=== PATIENT | female | born 1985 | race Hispanic/Latino ===

== ENCOUNTER 2019-12-14 10:55 | Observation (INO) | payer BC ==
[2019-12-14 11:38] VITALS: BP 153/84
[2019-12-14] MEDS ORDERED: LABETALOL HCL 200 MG TABLET PO SCH (11:45)
[2019-12-14] MEDS ORDERED: ACETAMINOPHEN 325 MG TAB PO PRN (11:45)
--- NOTE | 2019-12-14 12:25 | NUR ---
DR. JULIAN ROUNDING ON PATIENT. POC DISCUSSED. QUESTIONS INVITED AND ANSWERED. NO COMPLAINTS OR CONCERNS.
[2019-12-14] MEDS ORDERED: LEVO200T10 PO (12:49)
[2019-12-14] MEDS ORDERED: LABE100T5 PO (12:49)
[2019-12-14 13:15] LABS: BASOPHILS % (AUTO) 0.2 % (0.0-5.0); EOSINOPHILS % (AUTO) 2.3 % (0.0-8.0); HEMATOCRIT 32.1 % (36-48); LYMPHOCYTES % (AUTO) 15.3 % (21.0-51.0); MEAN CORPUSCULAR HEMOGLOBIN 26.5 pg (27.0-33.0); MEAN CORPUSCULAR HGB CONC 32.4 g/dL (32.0-36.0); MEAN CORPUSCULAR VOLUME 81.9 fL (79-99); MONOCYTES % (AUTO) 5.4 % (3.0-13.0); NEUTROPHILS % (AUTO) 75.4 % (40.0-77.0); NUCLEATED RED BLOOD CELLS 0.2 % (0.0-0.19); PLATELET COUNT (AUTO) 326 K/uL (130-400); RED BLOOD CELL COUNT(AUTO) 3.92 MIL/uL (4.00-5.50); RED CELL DISTRIBUTION WIDTH 13.7 % (11.0-15.5); WHITE BLOOD COUNT (AUTO) 11.5 K/uL (4.8-10.8)
[2019-12-14 13:26] LABS: CREATININE 0.7 mg/dL (0.5-1.5)
[2019-12-14 13:29] LABS: INR 0.89 (0.85-1.15); PARTIAL THROMBOPLASTIN TIME 27.3 SEC (26.3-35.5); PROTHROMBIN TIME 9.7 SEC (9.6-11.6)
[2019-12-14 13:33] LABS: ALBUMIN 2.4 g/dL (3.5-5.0); BILIRUBIN,TOTAL 0.4 mg/dL (0.2-1.0); TOTAL PROTEIN, SERUM 6.8 g/dL (6.0-8.3); URIC ACID 4.3 mg/dL (2.6-7.2)
--- NOTE | 2019-12-14 13:35 | NUR ---
DR. JULIAN MADE AWARE OF K+ RESULT OF 3.0. NEW ORDERS RECEIVED FOR POTASSIUM PROTOCOL PO.
[2019-12-14] MEDS ORDERED: POTASSIUM CHLORIDE 10% ELIXIR 20 MEQ/15 ML UDCUP PO PRN (13:45)
[2019-12-14] MEDS: POTASSIUM CHLORIDE 20 MEQ ERTAB PO PRN ×4 (14:09→22:22)
--- NOTE | 2019-12-14 14:25 | NUR ---
PATIENT PLACED ON NST AT THIS TIME. NO C/O DISCOMFORT
[2019-12-14 15:35] VITALS: BP 149/84
[2019-12-14 19:31] VITALS: BP 123/59
[2019-12-14] MEDS: LABETALOL HCL 200 MG TABLET PO SCH (22:21)
[2019-12-15 00:21] VITALS: BP 143/78
[2019-12-15 03:49] VITALS: BP 134/59
[2019-12-15 06:09] LABS: BASOPHILS % (AUTO) 0.4 % (0.0-5.0); EOSINOPHILS % (AUTO) 2.7 % (0.0-8.0); HEMATOCRIT 30.4 % (36-48); LYMPHOCYTES % (AUTO) 18.8 % (21.0-51.0); MEAN CORPUSCULAR HEMOGLOBIN 26.5 pg (27.0-33.0); MEAN CORPUSCULAR HGB CONC 31.9 g/dL (32.0-36.0); MEAN CORPUSCULAR VOLUME 83.1 fL (79-99); MONOCYTES % (AUTO) 5.2 % (3.0-13.0); NEUTROPHILS % (AUTO) 71.6 % (40.0-77.0); NUCLEATED RED BLOOD CELLS 0.2 % (0.0-0.19); PLATELET COUNT (AUTO) 233 K/uL (130-400); RED BLOOD CELL COUNT(AUTO) 3.66 MIL/uL (4.00-5.50); RED CELL DISTRIBUTION WIDTH 13.5 % (11.0-15.5); WHITE BLOOD COUNT (AUTO) 9.9 K/uL (4.8-10.8)
[2019-12-15 06:34] LABS: ALBUMIN 2.3 g/dL (3.5-5.0); BILIRUBIN,TOTAL 0.4 mg/dL (0.2-1.0); CREATININE 0.6 mg/dL (0.5-1.5); POTASSIUM 3.1 mmol/L (3.5-5.1); TOTAL PROTEIN, SERUM 6.4 g/dL (6.0-8.3)
[2019-12-15 06:36] LABS: INR 0.89 (0.85-1.15); PROTHROMBIN TIME 9.7 SEC (9.6-11.6)
[2019-12-15 07:52] VITALS: BP 135/75
[2019-12-15 08:09] LABS: HEPATITIS Bs ANTIGEN SCREEN P Negative (Negative)
--- NOTE | 2019-12-15 08:40 | NUR ---
ASSESSMENT: RECEIVED RESTING IN BED, EXPLAINED POC AND UNDERSTANDING VERBALIZED. DENIES C/O ANY HEADACHE, BLURRED VISION OR EPIGASTRIC PAIN. LIGHTS DIMMED.
[2019-12-15] MEDS: POTASSIUM CHLORIDE 20 MEQ ERTAB PO PRN ×3 (09:13→14:14)
[2019-12-15] MEDS: LABETALOL HCL 200 MG TABLET PO SCH (09:14)
--- NOTE | 2019-12-15 10:23 | NUR ---
NST: NST REACTIVE, MONITOR OFF. ABD PALPATED SOFT, DENIES C/O ANY CTX'S.
--- NOTE | 2019-12-15 11:30 | NUR ---
24 HR URINE: URINE 24 HR FOR TOTAL PROTEIN AND CREATININE CLEARANCE COMPLETED AND TAKEN TO THE LAB. PT INSTRUCTED TO NOT COLLECT ANY MORE.
[2019-12-15 11:56] VITALS: BP 153/80
--- NOTE | 2019-12-15 11:57 | NUR ---
ACTIVITY: AMB IN ROOM. NO C/O VOICED.
[2019-12-15 13:11] LABS: CREATININE,SERUM FOR CRCL 0.6 mg/dL (0.6-1.3)
[2019-12-15 13:13] LABS: COLLECTION PERIOD,URINE 24 HR; TOTAL VOLUME 24HRS,URINE 5400 mL; TPROTEIN TIMED,URINE 13 mg/dL; TPROTEIN U,24HR CALC 702 mg/24HR (0-165)
--- NOTE | 2019-12-15 14:36 | NUR ---
DISCHARGE INSTRUCTIONS GIVEN TO PT AND SPOUSE ON SELF CARE AT 37 WEEKS GESTATION WITH HIGH BLOOD PRESSURE, S&S OF HIGH BLOOD PRESSURE, LABOR, TO COUNT KICKS BID AND REPORT ANY PROBLEMS, DECREASED MOVEMENT. FOLLOW UP WITH DR JULIAN ON Tuesday12/17/2019 AT 0900 AM OR COME BACK TO THE HOSPITAL FOR ANY PROBLEMS. CONTINUE TAKING LABETALOL 200 MG PO BID , NEXT DOSE AT 2100 TONIGHT. UNDERSTANDING VERBALIZED AND COPIES OF ALL INSTRUCTIONS GIVEN TO PT.
--- NOTE | 2019-12-15 14:37 | NUR ---
DISCHARGE: INSTRUCTED TO FOLLOW HIGH FIBER DIET AND FOODS HIGH IN POTTASIUM, UNDERSTANDING VERBALIZED.
--- NOTE | 2019-12-15 15:00 | NUR ---
DISCHARGE: DISCHARGED HOME WITH HER TO PRIVATE CAR WITH .
== END 2019-12-15 15:00 | disposition home or self-care (01) ==
LOC: WSH 10:55
DX: O16.3 Unspecified maternal hypertension, third trimester (principal); Z3A.37 37 weeks gestation of pregnancy
CPT/HCPCS: 36415 ×2; 80053 ×2; 82575; 84156; 84443; 84550 ×2; 85025 ×2; 85384 ×2; 85610 ×2; 85730 ×2; 86592; 86850; 86900; 86901; 87340; G0378 ×16

== ENCOUNTER 2019-12-16 17:57 | Inpatient (IN) | payer BC ==
[~2019-12-16] VITALS: Ht 170.2 cm; Wt 137.4 kg
[~2019-12-16 17:57] MED LIST: LEVO200T10 PO
[2019-12-16] MEDS ORDERED: LACTATED RINGERS 1000ML 1,000 ML IV PRN (17:59)
[2019-12-16 19:29] LABS: BASOPHILS % (AUTO) 0.4 % (0.0-5.0); EOSINOPHILS % (AUTO) 2.2 % (0.0-8.0); HEMATOCRIT 32.1 % (36-48); MEAN CORPUSCULAR HEMOGLOBIN 26.2 pg (27.0-33.0); MEAN CORPUSCULAR HGB CONC 32.1 g/dL (32.0-36.0); MEAN CORPUSCULAR VOLUME 81.7 fL (79-99); NEUTROPHILS % (AUTO) 73.8 % (40.0-77.0); NUCLEATED RED BLOOD CELLS 0.3 % (0.0-0.19); PLATELET COUNT (AUTO) 330 K/uL (130-400); RED BLOOD CELL COUNT(AUTO) 3.93 MIL/uL (4.00-5.50); RED CELL DISTRIBUTION WIDTH 13.5 % (11.0-15.5); WHITE BLOOD COUNT (AUTO) 10.9 K/uL (4.8-10.8)
[2019-12-16 19:42] LABS: INR 0.91 (0.85-1.15); PROTHROMBIN TIME 9.9 SEC (9.6-11.6)
[2019-12-16 19:58] LABS: CREATININE 0.8 mg/dL (0.5-1.5); POTASSIUM 3.2 mmol/L (3.5-5.1)
[2019-12-16 20:05] LABS: ALBUMIN 2.4 g/dL (3.5-5.0); BILIRUBIN,TOTAL 0.4 mg/dL (0.2-1.0); TOTAL PROTEIN, SERUM 6.7 g/dL (6.0-8.3); URIC ACID 4.1 mg/dL (2.6-7.2)
[2019-12-16] MEDS: DINOPROSTONE 10 MG VAGINAL SUPP VG SCH (20:30)
[2019-12-16 20:34] LABS: APPEARANCE,URINE Clear (CLEAR); BILIRUBIN,URINE Negative (NEGATIVE); COLOR,URINE Yellow (YELLOW); GLUCOSE, URINE (UA) Negative (NEGATIVE); KETONES,URINE Negative (NEGATIVE); LEUKOCYTE ESTERASE ,URINE Small (NEGATIVE); NITRATE,URINE Negative (NEGATIVE); OCCULT BLOOD,URINE Negative (NEGATIVE); PROTEIN,URINE Trace mg/dL (NEGATIVE)
[2019-12-16] MEDS ORDERED: LABETALOL HCL 200 MG TABLET PO SCH (21:00)
[2019-12-16 21:10] LABS: BACTERIA,URINE Few /HPF (None Seen); CALCIUM OXALATE CRYSTALS,UR Few /LPF (None Seen); RBC,URINE None Seen /HPF (0-1)
[2019-12-17] MEDS ORDERED: MEPERIDINE-PF 50 MG/ML SYG ONE (02:22)
[2019-12-17] MEDS: PROMETHAZINE HCL 25 MG/ML 1ML AMPULE IM SCH (02:26)
[2019-12-17] MEDS ORDERED: MEPERIDINE-PF 50 MG/ML SYG IVP ONE (02:30)
[2019-12-17] MEDS ORDERED: OXYTOCIN-LR 20 UNITS/1000 ML 1,000 ML IV ONE (06:29)
[2019-12-17] MEDS ORDERED: OXYTOCIN 10 USP UNITS/ML 20 UNIT in LACTATED RINGERS 1000ML 1,000 ML IV SCH (07:00)
[2019-12-17] MEDS ORDERED: LACTATED RINGERS 500 ML 500 ML IV PRN (09:00)
[2019-12-17] MEDS ORDERED: EPHEDRINE SULFATE 50 MG/ML AMPULE IVP PRN (09:00)
[2019-12-17] MEDS ORDERED: ROPIVACAINE 0.2% 100ML VIAL 100 ML EP SCH (09:00)
[2019-12-17] MEDS ORDERED: NALOXONE HCL 0.4 MG/1 ML ML IV PRN (09:00)
[2019-12-17] MEDS ORDERED: OXYTOCIN-LR 20 UNITS/1000 ML 1,000 ML IV SCH (13:30)
[2019-12-17] MEDS ORDERED: LANOLIN 30GM OINTMENT TP PRN (13:30)
[2019-12-17] MEDS ORDERED: BENZOCAINE/LANOLIN/ALOE VERA 60 ML AEROSOL TP PRN (13:30)
[2019-12-17] MEDS ORDERED: DIPH,PERTUSS(ACELL),TET VAC/PF 0.5 ML VIAL IM PRN (13:30)
[2019-12-17] MEDS ORDERED: ACETAMINOPHEN-CODEINE 300/30MG TAB PO PRN (13:30)
[2019-12-17] MEDS ORDERED: WITCH HAZEL 1 PAD TP PRN (13:30)
[2019-12-17 15:35] VITALS: BP 169/91
--- NOTE | 2019-12-17 17:40 | NUR ---
PATIENT RESTING WITH EYES CLOSED CHEST RISING AND FALLING IN NORMAL PATTERN. AT BEDSIDE RESTING AT BEDSIDE. NO DISTRESS NOTED. CALL LIGHT IN REACH.
[2019-12-17 19:50] VITALS: BP 146/82
[2019-12-17] MEDS: DINOPROSTONE 10 MG VAGINAL SUPP VG SCH (20:22)
[2019-12-17] MEDS: LABETALOL HCL 200 MG TABLET PO SCH (21:07)
[2019-12-17] MEDS: FLUOXETINE HCL 10 MG CAPSULE PO SCH (21:07)
[2019-12-17] MEDS: DOCUSATE SODIUM 100 MG CAP PO SCH (21:07)
[2019-12-17 23:37] VITALS: BP 139/73
[2019-12-18] MEDS: PROMETHAZINE HCL 25 MG/ML 1ML AMPULE IM SCH ×2 (02:30→03:32)
[2019-12-18 03:00] VITALS: BP 127/81
[2019-12-18] MEDS: LEVOTHYROXINE 50 MCG TABLET PO SCH (06:30)
[2019-12-18 07:20] VITALS: BP 137/77
[2019-12-18 08:10] LABS: HEPATITIS Bs ANTIGEN SCREEN P Negative (Negative)
[2019-12-18] MEDS: DOCUSATE SODIUM 100 MG CAP PO SCH ×2 (08:44→21:13)
[2019-12-18] MEDS: LABETALOL HCL 200 MG TABLET PO SCH ×2 (08:45→21:12)
[2019-12-18] MEDS: IBUPROFEN 600 MG TABLET PO PRN (09:52)
--- NOTE | 2019-12-18 10:48 | NUR ---
ADVISED BY ADRIANO THAT PATIENT WOULD BE STAYING ANOTHER NIGHT 09/23 TO BABY NOT BEING DISCHARGED. PASSED INFO ON TO JAYLENE Chery Addendum: 12/18/19 at 1049 by KIKA WINCHESTER RN CM Amended: Links added.
--- NOTE | 2019-12-18 11:00 | NUR ---
[facility] BABY Sw met with pt and Ganga Edwards [phone]. This is second daughter for couple, Usama 4 1/2 and ALEJANDRO Muñoz. Couple own their own home, both independent and work. Pt has [employer] of [place] and no govt assistance. Couple has basic items for baby and car seat as well. Dr Jose will follow baby after dc. Family has good family support. 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 Pt states she was very "aloof"- " I just went thru the motions of caring for baby" for a couple of weeks after . Pt was started on medication by PCP that helped. Pt states OB has started pt on Prosac already to try and stay on top of possible post depression with this delivery. Pt denies any thoughts of hurting self or baby during that time. Pt denies hx of ideations, suicide attempts or inpt stays. Pt also reports hx of depression her first year at college. Pt related this to her adjustment to college life. Pt states depression was worst during her periods, so her PCP started her on anti depressant and control and this help get her feeling better. Pt denies any issues with depression during . Pt denies any hx of abuse, domestic violence, legal, CPS or substance abuse issues. Adriano informed pt that Dr Warner is keeping baby another day and recommending pt stay as well related to Coronavirus currently going on. ADRIANO notified CASSI Meza of Dr Warner's request
[2019-12-18 12:00] VITALS: BP 128/71
[2019-12-18 16:10] VITALS: BP 142/78
[2019-12-18 20:03] VITALS: BP 135/72
[2019-12-18] MEDS: FLUOXETINE HCL 10 MG CAPSULE PO SCH (21:12)
[2019-12-18 23:21] VITALS: BP 128/64
[2019-12-19 03:54] VITALS: BP 127/64
[2019-12-19] MEDS: LEVOTHYROXINE 50 MCG TABLET PO SCH (06:30)
[2019-12-19 07:21] VITALS: BP 149/76
[2019-12-19] MEDS: DOCUSATE SODIUM 100 MG CAP PO SCH (08:55)
[2019-12-19] MEDS: LABETALOL HCL 200 MG TABLET PO SCH (08:55)
[2019-12-19] MEDS: IBUPROFEN 600 MG TABLET PO PRN (08:56)
[2019-12-19 11:46] VITALS: BP 140/79
--- NOTE | 2019-12-19 13:35 | NUR ---
DISCHARGE PT LEFT UNIT VIA WHEELCHAIR, WITH BABY IN ARMS, ACCOMPANIED BY SIGNIFICANT OTHER. DENIED PAIN AND HAD NO COMPLAINTS. BABY STRAPPED IN CAR SEAT. PT AND BABY TRANSPORTED BY PERSONAL VEHICLE.
== END 2019-12-19 13:35 | disposition home or self-care (01) | DRG 807 ==
LOC: LDH 17:57 → OBSVTOIN 17:57 → WSH 12-17 15:23
PROC: 3E0234Z Introduction of Serum, Toxoid and Vaccine into Muscle, Percutaneous Approach (ICD-10-PCS; principal; 2019-12-17)
PROC: 10D07Z6 Extraction of Products of Conception, Vacuum, Via Natural or Artificial Opening (ICD-10-PCS; 2019-12-17)
PROC: 0W8NXZZ Division of Female Perineum, External Approach (ICD-10-PCS; 2019-12-17)
DX: O76 Abnormality in fetal heart rate and rhythm complicating labor and delivery (principal); Z37.0 Single live birth; O11.4 Pre-existing hypertension with pre-eclampsia, complicating childbirth; O69.81X0 Labor and delivery complicated by cord around neck, without compression, not applicable or unspecified; Z3A.37 37 weeks gestation of pregnancy; Z23 Encounter for immunization; O99.344 Other mental disorders complicating childbirth; F32.9 Major depressive disorder, single episode, unspecified; O99.214 Obesity complicating childbirth; E66.9 Obesity, unspecified; O66.5 Attempted application of vacuum extractor and forceps
CPT/HCPCS: 36415; 76805; 80053; 81001; 82575; 84156; 84443; 84550; 85025; 85384; 85610; 85730; 86592; 86850; 86900; 86901; 87340; 90715; A4314; A4606; G0378; J2175; J2590; J7120